=== PATIENT | female | born 1980 | race African-American/Black ===

== ENCOUNTER 2018-03-07 21:42 | Emergency (ER) | payer OTHER, SELFPAY ==
[2018-03-07] MEDS ORDERED: Ketorolac Tromethamine 30 MG/ML VIAL ONE (22:54)
== END 2018-03-08 00:07 | disposition home or self-care (01) ==
LOC: ERS 21:42
DX: K02.9 Dental caries, unspecified (principal); I10 Essential (primary) hypertension; J45.909 Unspecified asthma, uncomplicated; F41.9 Anxiety disorder, unspecified; F32.9 Major depressive disorder, single episode, unspecified; F17.210 Nicotine dependence, cigarettes, uncomplicated; Z79.899 Other long term (current) drug therapy
CPT/HCPCS: 96372; J1885

== ENCOUNTER 2018-07-05 14:19 | Emergency (ER) | payer OTHER, SELFPAY ==
[2018-07-05] MEDS ORDERED: Ibuprofen 200 MG TAB ONE (16:01)
== END 2018-07-05 16:06 | disposition home or self-care (01) ==
LOC: ERS 14:19
DX: K04.7 Periapical abscess without sinus (principal); K02.9 Dental caries, unspecified; J45.909 Unspecified asthma, uncomplicated; I10 Essential (primary) hypertension; F41.9 Anxiety disorder, unspecified; F32.9 Major depressive disorder, single episode, unspecified; F17.210 Nicotine dependence, cigarettes, uncomplicated; Z79.899 Other long term (current) drug therapy
CPT/HCPCS: 99283

== ENCOUNTER 2018-07-06 14:55 | Emergency (ER) | payer OTHER ==
[2018-07-06] MEDS ORDERED: HYDROcodone/Acetaminophen 10/325 mg Tablet ONE (15:24)
[2018-07-06] MEDS ORDERED: Clindamycin 150 MG CAP ONE (15:24)
== END 2018-07-06 15:48 | disposition home or self-care (01) ==
LOC: ERS 14:55
DX: K03.81 Cracked tooth (principal); K02.9 Dental caries, unspecified; I10 Essential (primary) hypertension; J45.909 Unspecified asthma, uncomplicated; F17.210 Nicotine dependence, cigarettes, uncomplicated; F41.9 Anxiety disorder, unspecified; F32.9 Major depressive disorder, single episode, unspecified
CPT/HCPCS: 99282

== ENCOUNTER 2018-08-26 13:08 | Emergency (ER) | payer OTHER ==
[2018-08-26] MEDS ORDERED: Ondansetron ODT 8 MG TAB ONE (15:56)
[2018-08-26 16:23] LABS: Bilirubin Small (Negative); Blood, Urine Moderate (Negative); Clarity CLEAR (Clear); Glucose, Urine (Dipstick) Negative (Negative); Leukocyte Negative (Negative); Nitrite Negative (Negative); Protein, Urine (Dipstick) Negative (Neg-Trace); Specific Gravity, Urine 1.029 (1.002-1.036); Urobilinogen 0.2 mg/dL (0.2-1.0)
[2018-08-26 16:29] LABS: Bacteria/HPF None Seen HPF (None Seen); Hyaline Casts/LPF 0-3 HYALINE CAST LPF (0-3 Hyaline); Pathc Cast-AUWi Flag 0.13 (0-2.49); Squamous Epithelial None Seen HPF (0-3); WBC/HPF 0-3 HPF (0-3)
[2018-08-26 16:33] LABS: Pregnancy Test - Urine (BHCG) Negative (Negative); Pregu Control Background? CLEAR/WHITE (CLR/WHITE); Pregu Control Bar Appear? YES (CONTROL BAR); Specific Gravity 1.029 (1.002-1.036)
== END 2018-08-26 16:48 | disposition home or self-care (01) ==
LOC: ERS 13:08
DX: K52.9 Noninfective gastroenteritis and colitis, unspecified (principal); I10 Essential (primary) hypertension; J45.909 Unspecified asthma, uncomplicated; F41.9 Anxiety disorder, unspecified; F32.9 Major depressive disorder, single episode, unspecified; F17.210 Nicotine dependence, cigarettes, uncomplicated
CPT/HCPCS: 81003; 81015; 81025; 87804; 96372; J0500

== ENCOUNTER 2018-11-13 18:55 | Emergency (ER) | payer OTHER | END 2018-11-13 19:58 | disposition home or self-care (01) | LOC: ERS 18:55 | DX: R59.0 Localized enlarged lymph nodes (principal); F41.9 Anxiety disorder, unspecified; F32.9 Major depressive disorder, single episode, unspecified; F17.210 Nicotine dependence, cigarettes, uncomplicated; J45.909 Unspecified asthma, uncomplicated; I10 Essential (primary) hypertension; Z79.899 Other long term (current) drug therapy | CPT/HCPCS: 99282 ==

== ENCOUNTER 2019-01-31 14:59 | Emergency (ER) | payer OTHER ==
[2019-01-31 15:26] LABS: #Basophils 0.1 thou/uL (0.0-0.2); #Eosinphils 0.3 thou/uL (0.0-0.7); #Lymphocytes 1.7 thou/uL (1.20-3.40); #Monocytes 0.4 thou/uL (0.11-0.59); #Neutrophils 2.7 thou/uL (1.40-6.50); %Eosinophils 6.1 % (0.0-10.0); %Monocytes 6.8 % (0.0-10.0); %Neutrophils 52.1 % (42.0-75.0); Hemoglobin 12.7 g/dL (12.0-16.0); Mean Corpuscular HGB CONC 32.5 g/dL (32.0-36.0); Mean Corpuscular Hemoglobin 27.1 pg (27.0-31.0); Mean Corpuscular Volume 83.4 fL (78.0-98.0); Mean Platelet Volume 6.6 fL (7.4-10.4); Platelet Count 327 thou/uL (130-400); RBC Distribution Width 14.1 % (11.5-14.5); Red Blood Cell (RBC) Count 4.68 mill/uL (4.20-5.40); White Blood Cell (WBC) Count 5.2 thou/uL (4.8-10.8)
[2019-01-31 15:47] LABS: ALT (SGPT) 13 U/L (8-55); AST (SGOT) 13 U/L (5-34); Alkaline Phosphatase 101 U/L (40-150); Anion Gap 10 mmol/L (10-20); BUN (Urea Nitrogen) 11 mg/dL (7.0-18.7); Bilirubin, Total 0.2 mg/dL (0.2-1.2); Calc. Creatinine Clearance 0 mL/min (70-130); Calcium 9.4 mg/dL (7.8-10.44); Carbon Dioxide 28 mmol/L (22-29); Chloride 103 mmol/L (98-107); Estimated GFR-MDRD Greater than 90; Globulin 3.7 g/dL (2.4-3.5); Glucose 96 mg/dL (70-105); Lipase 15 U/L (8-78); Potassium 3.5 mmol/L (3.5-5.1); Protein, Total 7.7 g/dL (6.0-8.3); Sodium 137 mmol/L (136-145)
[2019-01-31] MEDS ORDERED: Ondansetron ODT 4 MG TAB ONE (17:24)
[2019-01-31] MEDS ORDERED: Meclizine HCl 25 MG TAB ONE (17:24)
[2019-01-31 18:29] LABS: Bacteria/HPF None Seen HPF (None Seen); Bilirubin Negative (Negative); Blood, Urine Trace (Negative); Clarity Clear (Clear); Glucose, Urine (Dipstick) Normal (Negative); Leukocyte Negative Leu/uL (Negative); Nitrite Negative (Negative); Protein, Urine (Dipstick) Negative (Neg-Trace); Squamous Epithelial 0-3 HPF (0-3); Urobilinogen Normal mg/dL (Less than 2); WBC/HPF 0-3 HPF (0-3)
[2019-01-31 18:30] LABS: Pregnancy Test - Urine (BHCG) Negative (Negative); Pregu Control Background? CLEAR/WHITE (CLR/WHITE); Pregu Control Bar Appear? YES (CONTROL BAR); Specific Gravity 1.023 (1.002-1.036)
== END 2019-01-31 19:22 | disposition home or self-care (01) ==
LOC: ERS 14:59
DX: R42 Dizziness and giddiness (principal); I10 Essential (primary) hypertension; J45.909 Unspecified asthma, uncomplicated; F41.9 Anxiety disorder, unspecified; F32.9 Major depressive disorder, single episode, unspecified; F17.210 Nicotine dependence, cigarettes, uncomplicated; Z79.899 Other long term (current) drug therapy
CPT/HCPCS: 36415; 80053; 81003; 81015; 81025; 83690; 84443; 85025; 99284; J8597; Q0162

== ENCOUNTER 2019-08-04 15:06 | Emergency (ER) | payer SELFPAY ==
[2019-08-04 15:41] LABS: #Basophils 0.1 thou/uL (0.0-0.2); #Eosinphils 0.3 thou/uL (0.0-0.7); #Lymphocytes 1.4 thou/uL (1.20-3.40); #Monocytes 0.4 thou/uL (0.11-0.59); #Neutrophils 3.2 thou/uL (1.40-6.50); %Basophils 1.2 % (0.0-1.0); %Eosinophils 6.2 % (0.0-10.0); %Lymphocytes 25.4 % (21.0-51.0); %Monocytes 6.7 % (0.0-10.0); %Neutrophils 60.5 % (42.0-75.0); Hemoglobin 11.8 g/dL (12.0-16.0); Mean Corpuscular HGB CONC 31.5 g/dL (32.0-36.0); Mean Corpuscular Hemoglobin 25.7 pg (27.0-31.0); Mean Corpuscular Volume 81.5 fL (78.0-98.0); Mean Platelet Volume 6.6 fL (7.4-10.4); Platelet Count 328 thou/uL (130-400); RBC Distribution Width 14.3 % (11.5-14.5); Red Blood Cell (RBC) Count 4.61 mill/uL (4.20-5.40); White Blood Cell (WBC) Count 5.3 thou/uL (4.8-10.8)
[2019-08-04 15:55] LABS: ALT (SGPT) 16 U/L (8-55); AST (SGOT) 19 U/L (5-34); Alkaline Phosphatase 121 U/L (40-110); Anion Gap 10 mmol/L (10-20); BUN (Urea Nitrogen) 8 mg/dL (7.0-18.7); Bilirubin, Total 0.3 mg/dL (0.2-1.2); CK (CPK) 48 U/L (29-168); Calc. Creatinine Clearance 0 mL/min (70-130); Calcium 9.1 mg/dL (7.8-10.44); Carbon Dioxide 28 mmol/L (22-29); Chloride 105 mmol/L (98-107); Estimated GFR-MDRD Greater than 90; Globulin 3.9 g/dL (2.4-3.5); Glucose 100 mg/dL (70-105); Potassium 3.8 mmol/L (3.5-5.1); Protein, Total 7.9 g/dL (6.0-8.3); Sodium 139 mmol/L (136-145)
[2019-08-04] MEDS ORDERED: Ketorolac Tromethamine 60 MG/2 ML VIAL ONE (16:25)
--- NOTE | 2019-08-04 16:31 | RAD ---
PA AND LATERAL VIEWS CHEST: 08/04/19 HISTORY: Fever and shortness of breath. Chest pain. FINDINGS/IMPRESSION: Comparison made with exam of 07/04/10. There is fullness, suspicious for lymphadenopathy in the upper left mediastinum and the right paratracheal region. The heart size is normal. The lungs are expanded without focal areas of consolidation, pneumothoraces or pleural effusions. POS: [facility]
== END 2019-08-04 16:49 | disposition home or self-care (01) ==
LOC: ERS 15:06
DX: J06.9 Acute upper respiratory infection, unspecified (principal); R07.9 Chest pain, unspecified; I10 Essential (primary) hypertension; J45.909 Unspecified asthma, uncomplicated; F41.9 Anxiety disorder, unspecified; F32.9 Major depressive disorder, single episode, unspecified; F17.210 Nicotine dependence, cigarettes, uncomplicated
CPT/HCPCS: 36415; 71046; 80053; 82550; 84484; 85025; 93005; 96372; J1885

== ENCOUNTER 2020-07-12 01:03 | Emergency (ER) | payer SELFPAY ==
[2020-07-12 02:22] LABS: #Eosinphils 0.3 thou/uL (0.0-0.7); #Lymphocytes 1.4 thou/uL (1.20-3.40); #Monocytes 0.3 thou/uL (0.11-0.59); #Neutrophils 3.4 thou/uL (1.40-6.50); %Basophils 0.7 % (0.0-1.0); %Eosinophils 6.1 % (0.0-10.0); %Monocytes 6.2 % (0.0-10.0); %Neutrophils 61.9 % (42.0-75.0); Hemoglobin 11.6 g/dL (12.0-16.0); Mean Corpuscular HGB CONC 30.6 g/dL (32.0-36.0); Mean Corpuscular Hemoglobin 25.2 pg (27.0-31.0); Mean Corpuscular Volume 82.3 fL (78.0-98.0); Platelet Count 273 thou/uL (130-400); RBC Distribution Width 14.8 % (11.5-14.5); Red Blood Cell (RBC) Count 4.61 mill/uL (4.20-5.40); White Blood Cell (WBC) Count 5.5 thou/uL (4.8-10.8)
[2020-07-12 02:40] LABS: ALT (SGPT) 15 U/L (8-55); AST (SGOT) 24 U/L (5-34); Albumin 3.6 g/dL (3.5-5.0); Alkaline Phosphatase 123 U/L (40-110); Anion Gap 16 mmol/L (10-20); BUN (Urea Nitrogen) 15 mg/dL (7.0-18.7); Bilirubin, Total 0.2 mg/dL (0.2-1.2); Calc. Creatinine Clearance 0 mL/min (70-130); Calcium 9.1 mg/dL (7.8-10.44); Carbon Dioxide 24 mmol/L (22-29); Chloride 103 mmol/L (98-107); Globulin 4.5 g/dL (2.4-3.5); Glucose 98 mg/dL (70-105); Potassium 3.8 mmol/L (3.5-5.1); Protein, Total 8.1 g/dL (6.0-8.3); Sodium 139 mmol/L (136-145)
--- NOTE | 2020-07-12 07:46 | CT ---
PRELIMINARY REPORT/[facility]/EMERGENCY AFTER HOURS PROCEDURE: EXAM: CTA Chest with Intravenous Contrast CLINICAL HISTORY: Patient is a 39 yo female who presents with complaint of chest pain that has been c onstant, sharp & also feels like something "sitting on her chest", for the past 3 days. Acutely became worse earlier this evening. Has not tried anything for relief. The pain radiates to her jaw an d right shoulder. Has known history of GERD, says this feels different. PHx of obesity, HTN. Has FHx of CAD in mother. Patient additionally states she has had cough, congestion, and intermittent SO B for the past 1 week. Some of her co-workers tested positive for COVID 4 days ago. +ddimer TECHNIQUE: Axial CTA images of the chest with intravenous contrast. Three-dimensional MIP/volume rend ered reformations were performed. CONTRAST: With; ISOVUE COMPARISON: 10/06/2016. FINDINGS: PULMONARY ARTERIES There is no intraluminal filling defect suspicious for PE. AORTA No thoracic aortic aneurysm or dissection. LUNGS There are multiple groundglass opacities identified scattered throughout both lungs.. PLEURAL SPACES No pleural effusion. No pneumothorax. HEART AND MEDIASTINUM No cardiomegaly. No significant pericardial effusion. LYMPH NODES There is extensive enlargement of the lymph nodes throughout the mediastinum and the axil leidy regions. This has significantly progressed since prior study. Lymphoma is possible.. BONES No focal osseous abnormality or acute fracture. CHEST WALL AND UPPER ABDOMEN Spleen is enlarged. The chest wall is normal.. IMPRESSION: There is no evidence of pulmonary arterial emboli. There is significant enlargement of th e lymph tissue in the mediastinum and axillary regions. This has progressed significantly since prior study. Lymphoma is most likely. Splenomegaly. Bilateral groundglass opacities identified throu ghout both lungs. Early infiltrative process is suspected.. ELECTRONICALLY SIGNED BY: Brianna Lowry DO Jul 12, 2020 3:38:37 AM [employer] FINAL REPORT CT ANGIOGRAM OF THE CHEST: HISTORY: Chest pain. Positive COVID patient. COMPARISON: None. TECHNIQUE: CT angiogram of the chest is performed in the axial plane. Three-dimensional reformatted images are s ubmitted for interpretation. FINDINGS: Mediastinum: Extensive bulky mediastinal lymphadenopathy. Right paratracheal lymphadenopathy measures 3.4 x 5.2 cm. Subcarinal lymphadenopathy measures 6.3 x 5.6 cm. HEART: Normal size. No significant pericardial fluid. Aorta: No aneurysm or dissection. Upper solid abdominal viscera: No abnormality enhancement. Trachea and central bronchi: Patent. Pleural spaces: No effusion. Lung parenchyma: Scattered ground glass opacities with a predominant peripheral distribution. Focal o pacity in the middle lobe, measures 1.7 x 0.9 cm. Lower neck and axilla: There is evidence of left axillary lymphadenopathy measuring 3.7 x 2.0 cm. Rig ht axillary lymphadenopathy measuring 2.6 x 1.3 cm. Pneumothorax: None. Osseous structures: No lytic or blastic lesions. Pulmonary arteries: Adequate contrast opacification pulmonary arterial system to the level of segment al arteries. No filling defect to suggest pulmonary embolism. IMPRESSION: 1. This report is in agreement with initial report by [facility]. 2. Extensive lymphadenopathy in the axilla and mediastinum. 3. Bilateral ground-glass opacities. Correlate for COVID pneumonia. 4. No evidence of pulmonary artery embolism to the level of the segmental arteries. Transcribed Date/Time: 07/12/2020 8:13 AM
--- NOTE | 2020-07-12 08:01 | RAD ---
EXAM: CHEST ONE VIEW HISTORY: Fever and shortness of breath. Coughing and vomiting. High blood pressure. COMPARISON: 08/04/2019 FINDINGS: There is masslike density seen in the right perihilar and right paramediastinal location as well as p rominence of the left hilar structures. Previous area of fullness described in the right suprahilar/paramediastinal location on prior study has enlarged. Findings are worrisome for lymphaden opathy and/or mass involving the mediastinum and hilar regions. Vasculature is within normal limits. The lungs are clear. No other interval change. IMPRESSION: Masslike prominence of each hilar region and right paramediastinal location which may be related to m ass and/or bulky lymphadenopathy. CT scan thorax is recommended for further evaluation.
[2020-07-12 13:50] LABS: SARS-CoV-2 PCR by NAA Not Detected (NotDetected)
== END 2020-07-12 04:12 | disposition home or self-care (01) ==
LOC: ERS 01:03
DX: R59.0 Localized enlarged lymph nodes (principal); J06.9 Acute upper respiratory infection, unspecified; Z20.822 Contact with and (suspected) exposure to COVID-19; I10 Essential (primary) hypertension; J45.909 Unspecified asthma, uncomplicated; F17.210 Nicotine dependence, cigarettes, uncomplicated; Z79.899 Other long term (current) drug therapy
CPT/HCPCS: 36415; 71045; 71275; 80053; 84484; 85025; 85379; 87635; 93005; U0003; U0005

== ENCOUNTER 2020-10-08 09:02 | Emergency (ER) | payer BC, SELFPAY ==
[2020-10-08] MEDS ORDERED: diphenhydrAMINE 50 MG/ML VIAL ONE (11:36)
[2020-10-08] MEDS ORDERED: Metoclopramide HCl 10 MG/2 ML VIAL ONE (11:36)
[2020-10-08] MEDS ORDERED: Dexamethasone 10 MG/ML VIAL ONE ×2 (11:36→11:40)
[2020-10-08] MEDS ORDERED: Ketorolac Tromethamine 30 MG/ML VIAL ONE (11:36)
== END 2020-10-08 13:20 | disposition home or self-care (01) ==
LOC: ERS 09:02
DX: R51.9 Headache, unspecified (principal); I10 Essential (primary) hypertension; J45.909 Unspecified asthma, uncomplicated; F17.210 Nicotine dependence, cigarettes, uncomplicated; Z79.899 Other long term (current) drug therapy
CPT/HCPCS: 96365; 96375; J1100; J1200; J1885; J2765

== ENCOUNTER 2021-02-24 11:51 | Emergency (ER) | payer BC ==
[2021-02-24] MEDS ORDERED: Bupivacaine 0.5% 10 ML VIAL ONE (12:08)
== END 2021-02-24 13:00 | disposition home or self-care (01) ==
LOC: ERS 11:51
DX: Z48.02 Encounter for removal of sutures (principal); I10 Essential (primary) hypertension; J45.909 Unspecified asthma, uncomplicated; F17.210 Nicotine dependence, cigarettes, uncomplicated; Z79.899 Other long term (current) drug therapy
CPT/HCPCS: 64450; J3490

== ENCOUNTER 2021-03-11 13:10 | Emergency (ER) | payer BC ==
[2021-03-11 22:29] LABS: SARS-CoV-2 PCR by NAA DETECTED (NotDetected)
== END 2021-03-11 15:50 | disposition home or self-care (01) ==
LOC: ERS 13:10
DX: U07.1 COVID-19 (principal); Z79.899 Other long term (current) drug therapy; I10 Essential (primary) hypertension; J45.909 Unspecified asthma, uncomplicated; F17.210 Nicotine dependence, cigarettes, uncomplicated
CPT/HCPCS: 71045; 93005; U0003; U0005

== ENCOUNTER 2023-08-06 16:19 | Emergency (ER) | payer OTHER | END 2023-08-06 16:25 | disposition left against medical advice (07) | LOC: ERS 16:19 | DX: Z53.21 Procedure and treatment not carried out due to patient leaving prior to being seen by health care provider (principal) ==